=== PATIENT | male | born 1990 | race Caucasian/White ===

== ENCOUNTER 2017-08-26 20:57 | Emergency (ER) | payer BC, OTHER ==
[~2017-08-26] VITALS: Ht 180.3 cm; Wt 75.7 kg
[2017-08-26 21:00] VITALS: BP 139/64
--- NOTE | 2017-08-26 21:54 | PHYS DOC ---
Adult General Chief Complaint Chief Complaint: LACERATION/AVULSION HPI HPI 27 male now presents to the emergency department after cutting his right fourth and fifth digits with a knife while trying to carve a pumpkin. Patient tried to stab the pumpkin and soft through it's rind when his hand slid down the knife and laceration's cut his fingers on the proximal palmar aspect with three- quarter centimeter transverse wounds in the proximal phalange distribution of his ring finger and pinky. She states is able to move his fingers normally and sensation is intact distally. His tetanus is not up-to-date. Review of Systems Review of Systems Constitutional: Denies fever or chills [] Eyes: Denies change in visual acuity, redness, or eye pain [] HENT: Denies nasal congestion or sore throat [] Respiratory: Denies cough or shortness of breath [] Cardiovascular: No additional information not addressed in HPI [] GI: Denies abdominal pain, nausea, vomiting, bloody stools or diarrhea [] : Denies dysuria or hematuria [] Musculoskeletal: Denies back pain or joint pain [] Integument: Denies rash or skin lesions [] Neurologic: Denies headache, focal weakness or sensory changes [] Endocrine: Denies polyuria or polydipsia [] Physical Exam Physical Exam Well-appearing patient no acute distress. 0.75 cm wound on fourth and fifth digits of right hand palmar aspect proximal phalange distribution transverse orientation superficial and subcutaneous only with no tendon involvement. Neurovascularly intact distally. Clearly identifiable slicing wound not adequate depth for nerve injury. Patient with normal flexion against resistance PIP and DIP as well as MCP Constitutional: Well developed, well nourished, no acute distress, non-toxic appearance. [] HENT: Normocephalic, atraumatic, bilateral external ears normal, oropharynx moist, no oral exudates, nose normal. [] Eyes: PERRLA, EOMI, conjunctiva normal, no discharge. [] Neck: Normal range of motion, supple, no stridor. [] Cardiovascular:Heart rate regular rhythm, no murmur [] Lungs & Thorax: Bilateral chest wall excursion symmetrical Abdomen: Normal appearing abdomen nondistended Skin: Warm, dry, no erythema, no rash. [] Back: Normal Extremities: No tenderness, no cyanosis, no clubbing, ROM intact, no edema. [] Neurologic: Alert and oriented X 3, normal motor function, , no focal deficits noted. [] Psychologic: Affect normal, judgement normal, mood normal. [] EKG EKG [] Radiology/Procedures Radiology/Procedures Wound adhesive repair of the wounds by ILA Pressley Wound right fourth digit 0.75 cm in length right fifth digit 0.75 cm in length. Each irrigated extensively with [place] tap water patient. Sterile dressing applied. When hemostatic Dermabond applied with good approximation and cosmetic result. Neurovascularly intact distally. Patient tolerated well with no competitions Course & Med Decision Making Course & Med Decision Making Pertinent Labs and Imaging studies reviewed. (See chart for details) Simple laceration. Irrigated extensively. Hemostatic. Dermabond repair performed C note. Patient tolerated well. Tetanus updated. No further workup or treatment indicated. Patient with no evidence of tendon injury. He agrees with outpatient follow-up and strict return precautions given [] Dragon Disclaimer Dragon Disclaimer This chart was dictated in whole or in part using Voice Recognition software in a busy, high-work load, and often noisy Emergency Department environment. It may contain unintended and wholly unrecognized errors or omissions. Departure Departure: Impression: Primary Impression: Laceration of fingers without complication Additional Impression: Tetanus-diphtheria vaccination administered at current visit Referrals: CONSTANTINE CAMILO APRN (PCP) Additional Instructions: Your laceration has been repaired with wound adhesive. Do not apply ointment and do not pick, scrub, or soak the wound. The wound adhesive will fall off as the wound heals in approximately 5 days. Your tetanus shot has been updated today so make a note in your medical records. Take ibuprofen every 6 hours and Tylenol every 4 hours as needed for pain. Return for signs of infection Problem Qualifiers MAGGY LEROY MD Aug 26, 2017 21:54
[2017-08-26] MEDS ORDERED: DIPHTH,PERTUSS(ACELL),TET TOX 0.5 ML DISP.SYRIN. VAX IM ONE (22:00)
== END 2017-08-26 22:10 | disposition home or self-care (01) ==
LOC: ER 20:57
DX: S61.214A Laceration without foreign body of right ring finger without damage to nail, initial encounter (principal); S61.216A Laceration without foreign body of right little finger without damage to nail, initial encounter; W26.0XXA Contact with knife, initial encounter; Y93.89 Activity, other specified; Y99.8 Other external cause status; Y92.89 Other specified places as the place of occurrence of the external cause
CPT/HCPCS: 12001; 90471; 90715; 99283-25

== ENCOUNTER 2019-11-14 11:34 | Emergency (ER) | payer SELFPAY ==
[~2019-11-14] VITALS: Ht 182.9 cm; Wt 77.6 kg
[2019-11-14 11:51] VITALS: BP 131/60
[2019-11-14] MEDS ORDERED: CONTRAST GIVEN MC PRN (12:30)
[2019-11-14] MEDS ORDERED: IOHEXOL 300 MG/ML 75 ML VIAL. IV ONE (12:45)
--- NOTE | 2019-11-14 13:07 | RAD ---
CT abdomen pelvis with contrast dated 11/14/2019. No comparison available. CLINICAL INDICATION: Left inguinal pain and scrotal pain. TECHNIQUE: Contiguous axial imaging the abdomen and pelvis performed after the administration of 75 cc Omnipaque 300. One or more of the following individualized dose reduction techniques were utilized for this examination: 1. Automated exposure control 2. Adjustment of the mA and/or kV according to patient size 3. Use of iterative reconstruction technique Findings: Limited images of lung bases are clear. Heart size within normal limits. No pleural or pericardial effusion. Liver, spleen, pancreas, adrenal glands, gallbladder and kidneys are unremarkable. No hydronephrosis. Unopacified GI tract normal in caliber and contour. No focal bowel wall thickening. No inflammatory stranding in the mesentery. The appendix is normal in caliber. No ascites or lymphadenopathy. Images the pelvis show nondistended urinary bladder. Prostate gland normal in size. No free fluid or pelvic adenopathy. There is a suspected small left inguinal hernia containing only fat. Bone windows show no acute findings. IMPRESSION: 1. No acute abnormality of abdomen or pelvis. Normal appendix. 2. Small left inguinal hernia containing only fat. Electronically signed by: Wu Powers MD (11/14/2019 1:04 PM) [email or web address]
[2019-11-14 13:14] LABS: BASO # 0.1 x10^3/uL (0.0-0.2); BASO % 1 % (0-3); EOS # 0.4 x10^3/uL (0.0-0.7); EOS % 3 % (0-3); HEMATOCRIT 44.6 % (39.0-53.0); HEMOGLOBIN 14.5 g/dL (13.0-17.5); LYMPH # 2.7 x10^3/uL (1.0-4.8); LYMPH % 22 % (24-48); MEAN CORPUSCULAR HEMOGLOBIN 30 pg (25-35); MEAN CORPUSCULAR HGB CONC 32 g/dL (31-37); MEAN CORPUSCULAR VOLUME 92 fL (79-100); MONO % 8 % (0-9); NEUT # 8.1 x10^3uL (1.8-7.7); NEUT % 67 % (31-73); PLATELET COUNT 227 x10^3/uL (140-400); RED BLOOD COUNT 4.87 x10^6/uL (4.30-5.70); RED CELL DISTRIBUTION WIDTH 14.3 % (11.5-14.5); WHITE BLOOD COUNT 12.2 x10^3/uL (4.0-11.0)
[2019-11-14 13:23] LABS: CALCIUM 8.3 mg/dL (8.5-10.1); CREATININE 0.9 mg/dL (0.7-1.3); GFR 101.2; POTASSIUM 4.2 mmol/L (3.5-5.1)
[2019-11-14 13:29] LABS: ALBUMIN 3.5 g/dL (3.4-5.0); ALBUMIN/GLOBULIN RATIO 1.3 (1.0-1.7); TOTAL BILIRUBIN 0.4 mg/dL (0.2-1.0); TOTAL PROTEIN 6.2 g/dL (6.4-8.2)
--- NOTE | 2019-11-14 13:40 | PHYS DOC ---
Past History Past Medical History: No Pertinent History Past Surgical History: No Surgical History Alcohol Use: Occasionally Drug Use: Marijuana Adult General Chief Complaint Chief Complaint: GROIN PAIN HPI HPI Patient is a 29-year-old male who presented to ER today for evaluation of left inguinal pain that radiated to his left testicle area. Symptoms started last night after sexual intercourse. Patient feel like there is a knot in his left inguinal area. She denies any nausea vomiting, no fever, no penile discharge, no urinary symptom. aLL OTHER ros IS NEGATIVE UNLESS OTHERWISE NOTED IN hpi Review of Systems Review of Systems See above Current Medications Current Medications Current Medications Medications (Trade) Dose Ordered Sig/Kayla Start Time Stop Time Status Last Admin Dose Admin Info (Do NOT chart on this entry -- for MONITORING) 1 each PRN DAILY PRN 11/14/19 12:30 11/16/19 12:29 Iohexol (Omnipaque 300 Mg/ml) 75 ml 1X ONCE 11/14/19 12:45 11/14/19 12:46 DC 11/14/19 12:42 75 ML Allergies Allergies Allergies Coded Allergies Type Severity Reaction Last Updated Verified No Known Drug Allergies 08/26/17 No Physical Exam Physical Exam See above Constitutional: Well developed, well nourished, no acute distress, non-toxic appearance. [] HENT: Normocephalic, atraumatic, bilateral external ears normal, oropharynx moist, no oral exudates, nose normal. [] Eyes: PERRLA, EOMI, conjunctiva normal, no discharge. [] Neck: Normal range of motion, no tenderness, supple, no stridor. [] Cardiovascular:Heart rate regular rhythm, no murmur [] Lungs & Thorax: Bilateral breath sounds clear to auscultation [] Abdomen: Bowel sounds normal, soft, no tenderness, no masses, no pulsatile masses. There is tenderness to palpation in left inguinal area, There is no mass or tender in left scrotal area. No penile discharge. Skin: Warm, dry, no erythema, no rash. [] Back: No tenderness, no CVA tenderness. [] Extremities: No tenderness, no cyanosis, no clubbing, ROM intact, no edema. [] Neurologic: Alert and oriented X 3, normal motor function, normal sensory function, no focal deficits noted. [] Psychologic: Affect normal, judgement normal, mood normal. [] Current Patient Data Vital Signs Vital Signs Date Time Temp Pulse Resp B/P (MAP) Pulse Ox O2 Delivery O2 Flow Rate FiO2 11/14/19 11:51 97.2 66 15 131/60 (83) 98 Room Air Lab Results Laboratory Tests Test 11/14/19 13:00 White Blood Count 12.2 x10^3/uL (4.0-11.0) H Red Blood Count 4.87 x10^6/uL (4.30-5.70) Hemoglobin 14.5 g/dL (13.0-17.5) Hematocrit 44.6 % (39.0-53.0) Mean Corpuscular Volume 92 fL (79-100) Mean Corpuscular Hemoglobin 30 pg (25-35) Mean Corpuscular Hemoglobin Concent 32 g/dL (31-37) Red Cell Distribution Width 14.3 % (11.5-14.5) Platelet Count 227 x10^3/uL (140-400) Neutrophils (%) (Auto) 67 % (31-73) Lymphocytes (%) (Auto) 22 % (24-48) L Monocytes (%) (Auto) 8 % (0-9) Eosinophils (%) (Auto) 3 % (0-3) Basophils (%) (Auto) 1 % (0-3) Neutrophils # (Auto) 8.1 x10^3uL (1.8-7.7) H Lymphocytes # (Auto) 2.7 x10^3/uL (1.0-4.8) Monocytes # (Auto) 1.0 x10^3/uL (0.0-1.1) Eosinophils # (Auto) 0.4 x10^3/uL (0.0-0.7) Basophils # (Auto) 0.1 x10^3/uL (0.0-0.2) Sodium Level 140 mmol/L (136-145) Potassium Level 4.2 mmol/L (3.5-5.1) Chloride Level 107 mmol/L (98-107) Carbon Dioxide Level 28 mmol/L (21-32) Anion Gap 5 (6-14) L Blood Urea Nitrogen 18 mg/dL (8-26) Creatinine 0.9 mg/dL (0.7-1.3) Estimated GFR (Cockcroft-Gault) 101.2 BUN/Creatinine Ratio 20 (6-20) Glucose Level 88 mg/dL (70-99) Calcium Level 8.3 mg/dL (8.5-10.1) L Total Bilirubin 0.4 mg/dL (0.2-1.0) Aspartate Amino Transferase (AST) 22 U/L (15-37) Alanine Aminotransferase (ALT) 25 U/L (16-63) Alkaline Phosphatase 86 U/L (46-116) Total Protein 6.2 g/dL (6.4-8.2) L Albumin 3.5 g/dL (3.4-5.0) Albumin/Globulin Ratio 1.3 (1.0-1.7) EKG EKG [] Radiology/Procedures Radiology/Procedures [][address] [address] IMAGING REPORT Signed PATIENT: BRENDA FINCH ACCOUNT: [id number] : 1990 LOCATION: ER AGE: 29 SEX: M EXAM STATUS: REG ER ORD. PHYSICIAN: ISAEL LECHUGA DO REASON: left inguinal pain, left scrotal pain PROCEDURE: CT ABD PELV W/ IV CONTRST ONLY CT abdomen pelvis with contrast dated 11/14/2019. No comparison available. CLINICAL INDICATION: Left inguinal pain and scrotal pain. TECHNIQUE: Contiguous axial imaging the abdomen and pelvis performed after the administration of 75 cc Omnipaque 300. One or more of the following individualized dose reduction techniques were utilized for this examination: 1. Automated exposure control 2. Adjustment of the mA and/or kV according to patient size 3. Use of iterative reconstruction technique Findings: Limited images of lung bases are clear. Heart size within normal limits. No pleural or pericardial effusion. Liver, spleen, pancreas, adrenal glands, gallbladder and kidneys are unremarkable. No hydronephrosis. Unopacified GI tract normal in caliber and contour. No focal bowel wall thickening. No inflammatory stranding in the mesentery. The appendix is normal in caliber. No ascites or lymphadenopathy. Images the pelvis show nondistended urinary bladder. Prostate gland normal in size. No free fluid or pelvic adenopathy. There is a suspected small left inguinal hernia containing only fat. Bone windows show no acute findings. IMPRESSION: 1. No acute abnormality of abdomen or pelvis. Normal appendix. 2. Small left inguinal hernia containing only fat. Electronically signed by: Wu Powers MD (11/14/2019 1:04 PM) [facility] DICTATED AND SIGNED BY: WU POWERS MD DATE: 11/14/19 1304 CC: PCP,NO; ISAEL LECHUGA DO ~ Course & Med Decision Making Course & Med Decision Making Pertinent Labs and Imaging studies reviewed. (See chart for details) [] Dragon Disclaimer Dragon Disclaimer This electronic medical record was generated, in whole or in part, using a voice recognition dictation system. Departure Departure: Impression: Primary Impression: Inguinal hernia unilateral, non-recurrent Disposition: HOME, SELF-CARE Condition: STABLE Referrals: REJI REBOLLAR MD follow up with this General surgeon for definitive treatment next week. Patient Instructions: Hernia, [id number] Additional Instructions: Thank you for visiting our Emergency Department. We appreciate you trusting us with your care. If any additional problems come up don't hesitate to return to visit us. Please follow up with your primary care provider so they can plan additional care if needed and know about the problem that you had. If symptoms worsen come back to the Emergency Department. Any concerning symptoms that start such as chest pain, shortness of air, weakness or numbness on one side of the body, running high fevers or any other concerning symptoms return to the ER. ISAEL LECHUGA DO Nov 14, 2019 13:40
== END 2019-11-14 13:40 | disposition home or self-care (01) ==
LOC: ER 11:34
DX: K40.90 Unilateral inguinal hernia, without obstruction or gangrene, not specified as recurrent (principal)
CPT/HCPCS: 36415; 74177; 80053; 85025; 99285; Q9967

== ENCOUNTER 2020-09-16 14:06 | Emergency (ER) | payer SELFPAY ==
[~2020-09-16] VITALS: Ht 182.9 cm; Wt 75.4 kg
--- NOTE | 2020-09-16 14:44 | PHYS DOC ---
Past History Past Medical History: No Pertinent History Past Surgical History: No Surgical History Alcohol Use: Occasionally Drug Use: Marijuana Adult General Chief Complaint Chief Complaint: ABDOMINAL PAIN HPI HPI Patient is a 30-year-old male who presents to emergency room for evaluation of nausea, vomiting, and diarrhea that started at 5:00 this morning. He states he has not been able to keep any food or fluids down today. Reports diffuse abdominal pain. Denies fevers, cough, shortness of air, or chest pain. Review of Systems Review of Systems Constitutional: Denies fever or chills [] Eyes: Denies change in visual acuity, redness, or eye pain [] HENT: Denies nasal congestion or sore throat [] Respiratory: Denies cough or shortness of breath [] Cardiovascular: No additional information not addressed in HPI [] GI: reports abdominal pain, nausea, vomiting, and diarrhea [] : Denies dysuria or hematuria [] Musculoskeletal: Denies back pain or joint pain [] Integument: Denies rash or skin lesions [] Neurologic: Denies headache, focal weakness or sensory changes [] Endocrine: Denies polyuria or polydipsia [] All other systems were reviewed and found to be within normal limits, except as documented in this note. Allergies Allergies Allergies Coded Allergies Type Severity Reaction Last Updated Verified No Known Drug Allergies 08/26/17 No Physical Exam Physical Exam Constitutional: Well developed, well nourished, no acute distress, non-toxic appearance, ill appearing. [] HENT: Normocephalic, atraumatic, bilateral external ears normal, oropharynx moist, no oral exudates, nose normal. [] Eyes: PERRLA, EOMI, conjunctiva normal, no discharge. [] Cardiovascular:Heart rate regular rhythm, no murmur [] Lungs & Thorax: Bilateral breath sounds clear to auscultation [] Abdomen: Bowel sounds normal, soft, diffuse tenderness, no masses, no pulsatile masses. [] Skin: Warm, dry, no erythema, no rash. [] Extremities: No tenderness, no cyanosis, no clubbing, ROM intact, no edema. [] Neurologic: Alert and oriented X 3, normal motor function, normal sensory function, no focal deficits noted. [] Psychologic: Affect normal, judgement normal, mood normal. [] Current Patient Data Vital Signs Vital Signs Date Time Temp Pulse Resp B/P (MAP) Pulse Ox O2 Delivery O2 Flow Rate FiO2 09/16/20 14:24 97.9 47 16 122/70 (87) 99 Room Air Lab Results Laboratory Tests Test 09/16/20 15:01 09/16/20 16:00 White Blood Count 11.1 x10^3/uL Red Blood Count 4.84 x10^6/uL Hemoglobin 14.8 g/dL Hematocrit 44.3 % Mean Corpuscular Volume 91 fL Mean Corpuscular Hemoglobin 31 pg Mean Corpuscular Hemoglobin Concent 33 g/dL Red Cell Distribution Width 13.7 % Platelet Count 240 x10^3/uL Neutrophils (%) (Auto) 91 % Lymphocytes (%) (Auto) 5 % Monocytes (%) (Auto) 4 % Eosinophils (%) (Auto) 0 % Basophils (%) (Auto) 0 % Neutrophils # (Auto) 10.0 x10^3uL Lymphocytes # (Auto) 0.5 x10^3/uL Monocytes # (Auto) 0.5 x10^3/uL Eosinophils # (Auto) 0.0 x10^3/uL Basophils # (Auto) 0.0 x10^3/uL Segmented Neutrophils % 93 % Lymphocytes % 5 % Monocytes % 2 % Platelet Estimate Adequate Sodium Level 138 mmol/L Potassium Level 3.4 mmol/L Chloride Level 103 mmol/L Carbon Dioxide Level 22 mmol/L Anion Gap 13 Blood Urea Nitrogen 14 mg/dL Creatinine 1.0 mg/dL Estimated GFR (Cockcroft-Gault) 89.0 BUN/Creatinine Ratio 14 Glucose Level 148 mg/dL Calcium Level 8.9 mg/dL Total Bilirubin 0.5 mg/dL Aspartate Amino Transf (AST/SGOT) 19 U/L Alanine Aminotransferase (ALT/SGPT) 23 U/L Alkaline Phosphatase 78 U/L Total Protein 6.9 g/dL Albumin 4.0 g/dL Albumin/Globulin Ratio 1.4 Lipase 123 U/L Urine Collection Type Unknown Urine Color Yellow Urine Clarity Clear Urine pH >8.5 Urine Specific Cisco 1.025 Urine Protein Neg Urine Glucose (UA) Neg mg/dL Urine Ketones (Stick) 40 mg/dL Urine Blood Neg Urine Nitrite Neg Urine Bilirubin Neg Urine Urobilinogen Dipstick 0.2 mg/dL Urine Leukocyte Esterase Neg Urine RBC 0 /HPF Urine WBC Occ /HPF Urine Squamous Epithelial Cells Occ /LPF Urine Bacteria 0 /HPF Urine Mucus Slight /LPF Current Medications Medications (Trade) Dose Ordered Sig/Kayla Route PRN Reason Start Time Stop Time Status Last Admin Dose Admin Sodium Chloride 1,000 ml @ 1,000 mls/hr Q1H IV 09/16/20 14:45 09/16/20 15:44 DC 09/16/20 14:45 Ondansetron HCl (Zofran) 4 mg 1X ONCE IVP 09/16/20 14:45 09/16/20 14:46 DC 09/16/20 14:45 Morphine Sulfate (Morphine 4mg Syringe) 4 mg 1X ONCE IV 09/16/20 15:45 09/16/20 15:46 DC 09/16/20 15:44 EKG EKG [] Radiology/Procedures Radiology/Procedures [] Heart Score Risk Factors: Risk Factors: DM, Current or recent (<one month) smoker, HTN, HLP, family history of CAD, obesity. Risk Scores: Risk Factors: DM, Current or recent (<one month) smoker, HTN, HLP, family history of CAD, obesity. Course & Med Decision Making Course & Med Decision Making Pertinent Labs and Imaging studies reviewed. (See chart for details) [Vital signs stable, patient afebrile and nontoxic in appearance, he is tolerating p.o. fluids without nausea or vomiting, he is requesting discharge home, he would like a prescription for nausea medication. He will follow up with primary care provider in the next 2 to 3 days. Return to ER for new or worsening symptoms.] Dragon Disclaimer Dragon Disclaimer This electronic medical record was generated, in whole or in part, using a voice recognition dictation system. Departure Departure: Impression: Primary Impression: Vomiting and diarrhea Disposition: 01 DC HOME SELF CARE/HOMELESS Referrals: PCPARTURO (PCP) [facility], [facility] Patient Instructions: Diarrhea, Nausea and Vomiting, [id number] Scripts Ondansetron Hcl (ZOFRAN) 4 Mg Tablet 4 MG PO TID PRN PRN for NAUSEA, #12 TAB Prov: CLAUDETTE BURRELL APRN 09/16/20 CLAUDETTE BURRELL MEDIA PRODUCER Sep 16, 2020 14:44
[2020-09-16] MEDS ORDERED: ONDANSETRON PF 4 MG/2 ML VIAL. IVP ONE ×2 (14:45→17:15)
[2020-09-16] MEDS ORDERED: IV NORMAL SALINE 1,000ML 1,000 ML IV SCH (14:45)
[2020-09-16 15:27] LABS: BASO % 0 % (0-3); EOS % 0 % (0-3); HEMATOCRIT 44.3 % (39.0-53.0); HEMOGLOBIN 14.8 g/dL (13.0-17.5); LYMPH # 0.5 x10^3/uL (1.0-4.8); LYMPH % 5 % (24-48); MEAN CORPUSCULAR HEMOGLOBIN 31 pg (25-35); MEAN CORPUSCULAR HGB CONC 33 g/dL (31-37); MEAN CORPUSCULAR VOLUME 91 fL (79-100); MONO # 0.5 x10^3/uL (0.0-1.1); MONO % 4 % (0-9); NEUT % 91 % (31-73); PLATELET COUNT 240 x10^3/uL (140-400); RED BLOOD COUNT 4.84 x10^6/uL (4.30-5.70); RED CELL DISTRIBUTION WIDTH 13.7 % (11.5-14.5); WHITE BLOOD COUNT 11.1 x10^3/uL (4.0-11.0)
[2020-09-16 15:35] LABS: CALCIUM 8.9 mg/dL (8.5-10.1); POTASSIUM 3.4 mmol/L (3.5-5.1)
[2020-09-16 15:42] LABS: ALBUMIN/GLOBULIN RATIO 1.4 (1.0-1.7); TOTAL BILIRUBIN 0.5 mg/dL (0.2-1.0); TOTAL PROTEIN 6.9 g/dL (6.4-8.2)
[2020-09-16] MEDS ORDERED: MORPHINE SULFATE 4 MG/ML DISP.SYRIN. IV ONE (15:45)
[2020-09-16 15:54] LABS: % LYMPHS 5 % (24-48); % MONOS 2 % (0-10); % SEGS 93 % (35-66)
[2020-09-16 15:55] LABS: PLT ESTIMATE ADEQUATE (ADEQUATE)
[2020-09-16 16:46] LABS: CLARITY,URINE CLEAR; COLOR,URINE YELLOW
[2020-09-16 16:47] LABS: BACTERIA,URINE 0 /HPF (0-FEW); BILIRUBIN,URINE NEG (NEG); GLUCOSE,URINE NEG (NEG); NITRITE,URINE NEG (NEG); RBC,URINE 0 /HPF (0-2); SQUAMOUS EPITHELIAL CELL,UR OCC /LPF; UROBILINOGEN,URINE 0.2 mg/dL (0.2 mg/dL); WBC,URINE OCC /HPF (0-4)
[2020-09-16 17:06] VITALS: BP 119/58
[2020-09-16] MEDS ORDERED: ONDA4TAB7 PO (17:09)
== END 2020-09-16 17:16 | disposition home or self-care (01) ==
LOC: ER 14:06
DX: R11.2 Nausea with vomiting, unspecified (principal); R19.7 Diarrhea, unspecified; R10.84 Generalized abdominal pain
CPT/HCPCS: 36415; 80053; 81001; 83690; 85007; 85025; 96361; 96374; 96375; 96376; 99284; J2270; J2405; J7030; 96365

== ENCOUNTER 2021-06-29 16:36 | Emergency (ER) | payer OTHER ==
[~2021-06-29] VITALS: Ht 182.9 cm; Wt 81.8 kg
[~2021-06-29 16:36] MED LIST: ONDA4TAB7 PO
[2021-06-29 17:08] VITALS: BP 123/62
[2021-06-29] MEDS ORDERED: DIPH,PERTUSS(ACELL),TET VAC/PF 0.5 ML SYRINGE. VAX IM ONE (19:00)
[2021-06-29] MEDS ORDERED: CEPHALEXIN 250 MG CAPSULE ONE (19:13)
[2021-06-29] MEDS ORDERED: BACITRACIN ZINC TOPICAL OINT PACKET. TP ONE (19:15)
[2021-06-29] MEDS ORDERED: CEPHALEXIN 250 MG CAPSULE PO ONE (19:15)
[2021-06-29] MEDS ORDERED: CEPH500C PO (19:17)
--- NOTE | 2021-06-29 19:22 | PHYS DOC ---
Past History Past Medical History: No Pertinent History Past Surgical History: No Surgical History Alcohol Use: Occasionally Drug Use: Marijuana General Adult EDM: Chief Complaint: LACERATION/AVULSION HPI: HPI: " I was moving a bed frame.. and took the skin of top of my Lt index finger.. It is just hanging on by a flap.. " Patient is a 30 year old male who presents with above hx. of avulsion laceration of dorsal side of Lt index first joint. Tissue had a avascular appearance. Flag in 2 x 2 x 2 cm with exposed of flexor tendon. Extension is intact to finger. Distal neurovascular is intact. Capillary refill is equal to right hand. Patient up-to-date vaccinations. No recent travel. Normally heal thy. No history of specific ill contacts. No history immunosuppression. Review of Systems: Review of Systems: Constitutional: Denies fever or chills Eyes: Denies change in visual acuity HENT: Denies nasal congestion or sore throat Respiratory: Denies cough or shortness of breath Cardiovascular: Denies chest pain or edema GI: Denies abdominal pain, nausea, vomiting, bloody stools or diarrhea : Denies dysuria Musculoskeletal: Denies back pain or joint pain Integument: Complains of laceration to left index finger-dorsal side Neurologic: Denies headache, focal weakness or sensory changes Endocrine: Denies polyuria or polydipsia Lymphatic: Denies swollen glands Psychiatric: Denies depression or anxiety Family History: Family History: Noncontributory to presentation Current Medications: Current Meds: Current Medications Medications (Trade) Dose Ordered Sig/Kayla Start Time Stop Time Status Last Admin Dose Admin Bacitracin (Bacitracin Topical Pkt) 1 pkt 1X ONCE 06/29/21 19:15 06/29/21 19:16 UNV Cephalexin HCl (Keflex) 250 mg STK-MED ONCE 06/29/21 19:13 06/29/21 19:15 DC Diphtheria/ Pertussis/Tetanus Vacc (ADACEL TDap SYRINGE) 0.5 ml ONCE ONCE 06/29/21 19:00 06/29/21 19:05 DC Allergies: Allergies: Allergies Coded Allergies Type Severity Reaction Last Updated Verified No Known Drug Allergies 08/26/17 No Physical Exam: PE: Constitutional: Well developed, well nourished, no acute distress, non-toxic appearance. [] HENT: Normocephalic, atraumatic, bilateral external ears normal, oropharynx moist, no oral exudates, nose normal. [] Eyes: PERRLA, EOMI, conjunctiva normal, no discharge. [] Neck: Normal range of motion, no tenderness, supple, no stridor. [] Cardiovascular:Heart rate regular rhythm, no murmur [] Lungs & Thorax: Bilateral breath sounds equal apex on auscultation [] Abdomen: Bowel sounds normal, soft, no tenderness, no masses, no pulsatile masses. [] Skin: Warm, dry, no erythema, no rash. Avulsion laceration to left index finger proximal joint as per HPI Back: No tenderness, no CVA tenderness. [] Extremities: No tenderness, no cyanosis, no clubbing, ROM intact, no edema. [] Neurologic: Alert and oriented X 3, normal motor function, normal sensory function, no focal deficits noted. [] Psychologic: Affect anxious, judgement normal, mood normal. [] Current Patient Data: Vital Signs: Vital Signs Date Time Temp Pulse Resp B/P (MAP) Pulse Ox O2 Delivery O2 Flow Rate FiO2 06/29/21 17:08 98.0 57 16 123/62 99 Room Air EKG: EKG: [] Radiology/Procedures: Radiology/Procedures: [] Heart Score: C/O Chest Pain: N/A Risk Factors: Risk Factors: DM, Current or recent (<one month) smoker, HTN, HLP, family history of CAD, obesity. Risk Scores: Score 0 - 3: 2.5% MACE over next 6 weeks - Discharge Home Score 4 - 6: 20.3% MACE over next 6 weeks - Admit for Clinical Observation Score 7 - 10: 72.7% MACE over next 6 weeks - Early Invasive Strategies Course & Med Decision Making: Course & Med Decision Making Pertinent Labs and Imaging studies reviewed. (See chart for details) Procedure note: Laceration/Avulsion repair- Area laceration irrigated with normal saline and range of motion. Betadine to the edge of wound. Use of lidocaine 2% for local injection. Re- irrigated in range of motion with normal saline. Used 6-0 Prolene to closed wound with 4 mattress sutures to reattach the flap of skin over exposed tendon. Patient to take Keflex 500 mg 3 times a day. Patient apply Polysporin 4 times a day. Patient keep wound clean and dry. Patient follow-up primary care. Patient advised he most likely has loss of the avascular flap of skin. Impression: 1. Laceration 2x2x2 cm avulsion flap- Lt Index finger, proximal joint, dorsal [] Ernie Disclaimer: Ernie Disclaimer: This electronic medical record was generated, in whole or in part, using a voice recognition dictation system. Departure Departure: Impression: Primary Impression: Laceration Disposition: HOME / SELF CARE / HOMELESS Condition: GUARDED Patient Instructions: Laceration Care, Adult, [id number] Additional Instructions: Keep hand clean and dry. Once past 3 days or if become wet remove dressing Then keep cover and use polysporin 4 x day. Sutures out 10 days. Placed 4 mattress sutures, you will most likely have lost of tissue flap. Take Keflex 500 thee times a day. Scripts Cephalexin (KEFLEX) 500 Mg Capsule 500 MG PO TID for expose tendon for 7 Days, #21 CAP Prov: LENKA BOOTHE MD 06/29/21 Ernie Disclaimer This chart was dictated in whole or in part using Voice Recognition software in a busy, high-work load, and often noisy Emergency Department environment. It may contain unintended and wholly unrecognized errors or omissions. LENKA BOOTHE MD Jun 29, 2021 19:22
== END 2021-06-29 19:26 | disposition home or self-care (01) ==
LOC: ER 16:36
DX: S61.211A Laceration without foreign body of left index finger without damage to nail, initial encounter (principal); F12.10 Cannabis abuse, uncomplicated; X58.XXXA Exposure to other specified factors, initial encounter; Y93.89 Activity, other specified; Y92.89 Other specified places as the place of occurrence of the external cause; Y99.9 Unspecified external cause status
CPT/HCPCS: 12002; 90471; 90715; 99283-25

== ENCOUNTER 2022-02-10 02:50 | Emergency (ER) | payer SELFPAY ==
[~2022-02-10] VITALS: Ht 182.9 cm; Wt 80.0 kg
[~2022-02-10 02:50] MED LIST changes: +CEPH500C PO
[2022-02-10] MEDS ORDERED: IV NORMAL SALINE 1,000ML 1,000 ML IV ONE (03:00)
[2022-02-10] MEDS ORDERED: ONDANSETRON PF 4 MG/2 ML VIAL. IVP ONE ×2 (03:00→03:15)
[2022-02-10] MEDS ORDERED: MORPHINE SULFATE 4 MG/ML DISP.SYRIN. IV ONE (03:15)
--- NOTE | 2022-02-10 03:17 | PHYS DOC ---
Past History Past Medical History: No Pertinent History Additional Past Medical Histor: stomach ulcer Past Surgical History: Other Additional Past Surgical Histo: knee, shoulder, ankle, wisdom teeth, hand Alcohol Use: Occasionally Drug Use: Marijuana General Adult EDM: Chief Complaint: GI PROBLEM HPI: HPI: 31-year-old male presents with right lower quadrant abdominal pain. He started to have pain around 4 PM. It has been coming and going in intermittent waves all day. It is moved to his central right lower quadrant. It is moderate in i ntensity. He has had several episodes of vomiting and a little bit of diarrhea. Patient has no surgical history. He is not sure if he has had a fever. Review of Systems: Review of Systems: Constitutional: Denies fever or chills Eyes: Denies change in visual acuity HENT: Denies nasal congestion or sore throat Respiratory: Denies cough or shortness of breath Cardiovascular: Denies chest pain or edema GI: Right lower quadrant abdominal pain, nausea, vomiting, diarrhea : Denies dysuria Musculoskeletal: Denies back pain or joint pain Integument: Denies rash Neurologic: Denies headache, focal weakness or sensory changes Endocrine: Denies polyuria or polydipsia Lymphatic: Denies swollen glands Psychiatric: Denies depression or anxiety Current Medications: Current Meds: Current Medications Medications (Trade) Dose Ordered Sig/Kayla Start Time Stop Time Status Last Admin Dose Admin Ondansetron HCl (Zofran) 4 mg 1X ONCE 02/10/22 03:15 02/10/22 03:16 Sodium Chloride 1,000 ml @ 1,000 mls/hr 1X ONCE 02/10/22 03:00 02/10/22 03:59 Allergies: Allergies: Allergies Coded Allergies Type Severity Reaction Last Updated Verified No Known Drug Allergies 08/26/17 No Physical Exam: PE: Constitutional: Well developed, well nourished, mild acute distress, non-toxic appearance. [] HENT: Normocephalic, atraumatic, bilateral external ears normal, oropharynx moist, no oral exudates, nose normal. [] Eyes: PERRLA, EOMI, conjunctiva normal, no discharge. [] Neck: Normal range of motion, no tenderness, supple, no stridor. [] Cardiovascular: Heart rate regular rhythm, no murmur [] Lungs & Thorax: Bilateral breath sounds clear to auscultation [] Abdomen: Bowel sounds normal, soft, right lower quadrant tenderness, no masses, no pulsatile masses. [] Skin: Warm, dry, no erythema, no rash. [] Back: No tenderness, no CVA tenderness. [] Extremities: No tenderness, no cyanosis, no clubbing, ROM intact, no edema. [] Neurologic: Alert and oriented X 3, normal motor function, normal sensory function, no focal deficits noted. [] Psychologic: Affect normal, judgement normal, mood normal. [] Current Patient Data: Vital Signs: Vital Signs Date Time Temp Pulse Resp B/P (MAP) Pulse Ox O2 Delivery O2 Flow Rate FiO2 02/10/22 02:55 97.6 82 18 128/65 (86) 99 Room Air EKG: EKG: [] Radiology/Procedures: Radiology/Procedures: [] Impressions: EXAM: CT Abdomen and Pelvis with IV contrast CLINICAL HISTORY: Right lower quadrant abdominal pain. COMPARISON: none TECHNIQUE: Helical CT of the abdomen and pelvis was performed following the administration of intravenous contrast. Axial, coronal and sagittal reformatted images were generated. PQRS compliance statement - One or more of the following individualized dose reduction techniques were utilized for this study: 1. Automated exposure control 2. Adjustment of the mA and/or kV according to patient size 3. Use of iterative reconstruction technique FINDINGS: Lower Chest: 3 mm left lower lung nodule is seen. Small hiatal hernia. Abdomen and Pelvis: Gallbladder is normal. No biliary duct dilatation. Pancreas, spleen and adrenal glands are unremarkable. Symmetric nephrograms. No focal renal lesion. No hydronephrosis. No hydroureter. Bladder wall thickening may be seen with cystitis or be related to underdistention.. Appendix is normal. Mild colonic stool content. No small or large bowel dilatation. No bowel obstruction. No abdominal or pelvic lymphadenopathy or ascites. Bones: No aggressive osseous lesion. IMPRESSION: 1. Appendix is normal. 2. Mild colonic stool content. 3. Bladder wall thickening may be seen with cystitis or be related to underdistention.. Electronically signed by: Wolf Randall MD (02/10/2022 4:14 AM) [facility] DICTATED AND SIGNED BY: WOLF RANDALL MD DATE: 02/10/22 0410 CC: GAVIN ISRAEL DO; PCP,NO ~ Heart Score: C/O Chest Pain: N/A Risk Factors: Risk Factors: DM, Current or recent (<one month) smoker, HTN, HLP, family history of CAD, obesity. Risk Scores: Score 0 - 3: 2.5% MACE over next 6 weeks - Discharge Home Score 4 - 6: 20.3% MACE over next 6 weeks - Admit for Clinical Observation Score 7 - 10: 72.7% MACE over next 6 weeks - Early Invasive Strategies Course & Med Decision Making: Course & Med Decision Making Pertinent Labs and Imaging studies reviewed. (See chart for details) The patient's labs are unremarkable. Urinalysis is negative for infection. I have given him 4mg morphine and a milligram of Dilaudid for his discomfort. He does not have a significant history in the narcotics database. His CT of the abdomen pelvis is negative for acute findings. This is likely a viral gastroenteritis. I will discharge patient with Zofran. He is stable for discharge at this time. [] Dragon Disclaimer: Dragon Disclaimer: This electronic medical record was generated, in whole or in part, using a voice recognition dictation system. Departure Departure: Impression: Primary Impression: Viral gastroenteritis Disposition: HOME / SELF CARE / HOMELESS Condition: STABLE Referrals: PCP,NO (PCP) Patient Instructions: Viral Gastroenteritis, [id number] Ondansetron (ONDANSETRON ODT) 4 Mg Tab.rapdis 1 TAB PO PRN Q6-8HRS PRN for VOMITING, #16 TAB Prov: GAVIN ISRAEL DO 02/10/22 GAVIN ISRAEL DO Feb 10, 2022 03:17
[2022-02-10] MEDS ORDERED: IOHEXOL 300 MG/ML 75 ML VIAL. IV ONE (03:30)
[2022-02-10] MEDS ORDERED: CONTRAST GIVEN. MC PRN (03:30)
[2022-02-10 03:39] LABS: BASO # 0.1 x10^3/uL (0.0-0.2); BASO % 1 % (0-3); EOS % 0 % (0-3); HEMATOCRIT 44.4 % (39.0-53.0); HEMOGLOBIN 15.2 g/dL (13.0-17.5); LYMPH # 1.1 x10^3/uL (1.0-4.8); LYMPH % 11 % (24-48); MEAN CORPUSCULAR HEMOGLOBIN 31 pg (25-35); MEAN CORPUSCULAR HGB CONC 34 g/dL (31-37); MEAN CORPUSCULAR VOLUME 90 fL (79-100); MONO # 0.4 x10^3/uL (0.0-1.1); MONO % 4 % (0-9); NEUT # 8.1 x10^3uL (1.8-7.7); NEUT % 84 % (31-73); PLATELET COUNT 272 x10^3/uL (140-400); RED BLOOD COUNT 4.93 x10^6/uL (4.30-5.70); RED CELL DISTRIBUTION WIDTH 13.9 % (11.5-14.5); WHITE BLOOD COUNT 9.6 x10^3/uL (4.0-11.0)
[2022-02-10 03:46] LABS: CALCIUM 9.4 mg/dL (8.5-10.1); GFR 88.3; POTASSIUM 3.4 mmol/L (3.5-5.1)
[2022-02-10 03:48] LABS: AMORPHOUS SEDIMENT,UR PRESENT /HPF; BACTERIA,URINE 0 /HPF (0-FEW); CLARITY,URINE CLEAR; COLOR,URINE YELLOW; GLUCOSE,URINE NEG (NEG); NITRITE,URINE NEG (NEG); RBC,URINE 0 /HPF (0-2); SQUAMOUS EPITHELIAL CELL,UR OCC /LPF; UROBILINOGEN,URINE 0.2 mg/dL (0.2 mg/dL)
[2022-02-10 03:54] LABS: ALBUMIN 3.9 g/dL (3.4-5.0); ALBUMIN/GLOBULIN RATIO 1.1 (1.0-1.7); TOTAL BILIRUBIN 0.5 mg/dL (0.2-1.0); TOTAL PROTEIN 7.4 g/dL (6.4-8.2)
[2022-02-10] MEDS ORDERED: HYDROmorphone PF 1 MG/ML DISP.SYRIN IVP ONE (04:00)
--- NOTE | 2022-02-10 04:17 | RAD ---
EXAM: CT Abdomen and Pelvis with IV contrast CLINICAL HISTORY: Right lower quadrant abdominal pain. COMPARISON: none TECHNIQUE: Helical CT of the abdomen and pelvis was performed following the administration of intrave nous contrast. Axial, coronal and sagittal reformatted images were generated. PQRS compliance statement - One or more of the following individualized dose reduction techniques wer e utilized for this study: 1. Automated exposure control 2. Adjustment of the mA and/or kV according to patient size 3. Use of iterative reconstruction technique FINDINGS: Lower Chest: 3 mm left lower lung nodule is seen. Small hiatal hernia. Abdomen and Pelvis: Gallbladder is normal. No biliary duct dilatation. Pancreas, spleen and adrenal glands are unremarkab le. Symmetric nephrograms. No focal renal lesion. No hydronephrosis. No hydroureter. Bladder wall thi ckening may be seen with cystitis or be related to underdistention.. Appendix is normal. Mild colonic stool content. No small or large bowel dilatation. No bowel obstruct ion. No abdominal or pelvic lymphadenopathy or ascites. Bones: No aggressive osseous lesion. IMPRESSION: 1. Appendix is normal. 2. Mild colonic stool content. 3. Bladder wall thickening may be seen with cystitis or be related to underdistention.. Electronically signed by: Wolf Randall MD (02/10/2022 4:14 AM) [facility]
[2022-02-10] MEDS ORDERED: ONDA4TAB12 PO (04:26)
[2022-02-10 04:45] VITALS: BP 95/53
== END 2022-02-10 04:45 | disposition home or self-care (01) ==
LOC: ER 02:50
DX: A08.4 Viral intestinal infection, unspecified (principal)
CPT/HCPCS: 36415; 74177; 80053; 81001; 85025; 96361; 96374; 96375; 99285; J1170; J2270; J2405; J7030; Q9967